=== PATIENT | female | born 1955 | race Caucasian/White ===

== ENCOUNTER → 2018-04-04 | Outpatient (CLI) | payer OTHER ==
[~2018-04-04] MED LIST: ASPI81CH PO; ATOR20; ATOR20 PO; ATOR40TA; ATOR40TA PO; CLOP75 PO; FARXIGA5 MG PO; GLIP5 PO; LISI5 PO; LIVALO2 MG PO; METO25ER; METO25ER PO
== END ==
LOC: LAB EV 17:18 → LAB SHORT 17:18
DX: R07.9 Chest pain, unspecified (principal); J02.9 Acute pharyngitis, unspecified
CPT/HCPCS: 84484; 87070

== ENCOUNTER 2018-10-03 06:52 | Day surgery (SDC) | payer OTHER ==
[~2018-10-03] VITALS: Ht 160 cm; Wt 66.0 kg
[~2018-10-03 06:52] MED LIST changes: +Cinnamon500 MG PO; +DIPH50 PO; +FAMO20 PO; +FISH OIL 1,0001 EAC1 PO; +ISOMON20 PO; +METF500C PO; +Nitrostat0.4 MG SL; +RANO500T PO; +REPATHA SU140 MG/1 M; +UBID100 PO
--- NOTE | 2018-10-03 10:53 | NUR ---
10/03/18 Denise3 Devin Valenzuela LATE ENTRY PATIENT VSS, TOLERATING PO FLUIDS DISCHARGE INSTRUCTIONS REVIEWED WITH PATIENT, NO QUESTIONS AT THIS TIME. NURSE ASSISTED PATIENT WALK TO HER RIDE HOME.
== END 2018-10-03 09:39 | disposition home or self-care (01) ==
LOC: ORSCSDS 06:52
PROVIDERS: Internal Medicine Gastroenterology
PROC: 0DB48ZX Excision of Esophagogastric Junction, Via Natural or Artificial Opening Endoscopic, Diagnostic (ICD-10-PCS; principal; 2018-10-03 08:30)
PROC: 0DJD8ZZ Inspection of Lower Intestinal Tract, Via Natural or Artificial Opening Endoscopic (ICD-10-PCS; principal; 2018-10-03 08:30)
DX: R13.10 Dysphagia, unspecified (principal); K44.9 Diaphragmatic hernia without obstruction or gangrene; K21.0 Gastro-esophageal reflux disease with esophagitis; K64.8 Other hemorrhoids; Z12.11 Encounter for screening for malignant neoplasm of colon; I25.10 Atherosclerotic heart disease of native coronary artery without angina pectoris; Z95.1 Presence of aortocoronary bypass graft; Z86.73 Personal history of transient ischemic attack (TIA), and cerebral infarction without residual deficits; I10 Essential (primary) hypertension; E78.5 Hyperlipidemia, unspecified; E11.9 Type 2 diabetes mellitus without complications; Z79.82 Long term (current) use of aspirin; Z79.84 Long term (current) use of oral hypoglycemic drugs; Z79.899 Other long term (current) drug therapy
CPT/HCPCS: 82947; 88305; 88312; J0330; J1980; J2405; J7120

== ENCOUNTER 2019-02-06 10:34 | Day surgery (SDC) | payer OTHER ==
[~2019-02-06] VITALS: Ht 157.5 cm; Wt 97.9 kg
[~2019-02-06 10:34] MED LIST changes: +Aspirin EC81 MG PO; +CO Q10100 MG PO; +COENZYME Q-10200 MG PO; +Coq-10100 MG PO; +GLIP5ER PO; +Ginkgo Biloba120 MG PO; +Ginkgo Biloba40 M1 PO; +Isosorbide Mono30 MG PO; +LO-DOSE ASPIRIN81 MG PO; +MULTI VITAMIN1 EACH PO; +Multiple Vitam1 EAC1 PO; +OMEP20ER PO; +Omega 3 1,0001 EACH PO; +Potassium99 MG PO; +Prilosec Otc20 MG PO; +Prinivil10 MG PO; +REPATHA SU140 MG/1 M SC; +Toprol Xl25 MG PO; +VISION FORMULA1 EAC1 PO
--- NOTE | 2019-02-06 12:37 | NUR ---
02/06/[address] NOTIFIED OF BP'S 77/48 & 76/50. PER CONTINUE TO WATCH. PER BP LOW DURING PROCEDURE.
== END 2019-02-06 12:55 | disposition home or self-care (01) ==
LOC: ORSCSDS 10:34
PROVIDERS: Internal Medicine Gastroenterology
PROC: 0DB58ZX Excision of Esophagus, Via Natural or Artificial Opening Endoscopic, Diagnostic (ICD-10-PCS; principal; 2019-02-06 12:00)
PROC: 0D758ZZ Dilation of Esophagus, Via Natural or Artificial Opening Endoscopic (ICD-10-PCS; principal; 2019-02-06 12:00)
DX: K22.70 Barrett's esophagus without dysplasia (principal); K21.0 Gastro-esophageal reflux disease with esophagitis; K22.2 Esophageal obstruction; K44.9 Diaphragmatic hernia without obstruction or gangrene; E11.9 Type 2 diabetes mellitus without complications; E78.5 Hyperlipidemia, unspecified; I10 Essential (primary) hypertension; F41.8 Other specified anxiety disorders; Z79.84 Long term (current) use of oral hypoglycemic drugs; Z79.899 Other long term (current) drug therapy
CPT/HCPCS: 82947; 88305; J2704; J7120